=== PATIENT | male | born 1950 ===

== ENCOUNTER 2018-10-06 07:45 | Inpatient (IN) | payer MEDICARE, OTHER ==
[2018-10-06 07:46] VITALS: BMI 27.2
[2018-10-06] MEDS ORDERED: Sodium Chloride 0.9% 500 ML IV STA (08:12)
[2018-10-06] MEDS ORDERED: Albuterol 0.083% Inhal Sol (2.5 mg/3 mL) UD INH STA (08:12)
[2018-10-06] MEDS ORDERED: Albuterol-Ipratrop 3 mg / 0.5 (3 ml) UD IH STA (08:12)
[2018-10-06 08:29] LABS: BASO # 0.1 K/uL (0.0-0.2); EOS # 0.6 K/uL (0.0-0.7); EOS % 8.9 % (0.0-4.0); HEMOGLOBIN 13.1 g/dL (12.0-18.0); LYMPH # 0.6 K/uL (1.0-4.3); LYMPH % 8.7 % (20.0-40.0); MEAN CORPUSCULAR HEMOGLOBIN 28.1 pg (27.0-31.0); MEAN CORPUSCULAR HGB CONC 33.7 g/dL (33.0-37.0); MEAN PLATELET VOLUME 7.7 fL (7.2-11.7); MONO # 0.6 K/uL (0.0-0.8); MONO % 9.7 % (0.0-10.0); NEUT # 4.7 K/uL (1.8-7.0); NEUT % 71.7 % (50.0-75.0); PLATELET COUNT 203 K/uL (130-400); RBC 4.66 Mil/uL (4.40-5.90); RED CELL DISTRIBUTION WIDTH 14.4 % (11.5-14.5); WHITE BLOOD COUNT 6.5 K/uL (4.8-10.8)
[2018-10-06] MEDS ORDERED: Sodium Chloride 0.9% 500 ML IV ONE ×4 (08:31→11:22)
[2018-10-06] MEDS ORDERED: Albuterol-Ipratrop 3 mg / 0.5 (3 ml) UD ONE (08:31)
[2018-10-06] MEDS ORDERED: Albuterol 0.083% Inhal Sol (2.5 mg/3 mL) UD ONE (08:31)
[2018-10-06 08:32] LABS: MEAN CELL VOLUME 83.4 fL (80.0-94.0)
[2018-10-06 08:33] LABS: VENOUS BLOOD GAS BASE EXCESS -0.8 mmol/L (0.0-2.0); VENOUS BLOOD GAS PCO2 37 mmHg (40-60); VENOUS BLOOD GAS PO2 49 mm/Hg (30-55); VENOUS BLOOD PH 7.41 (7.32-7.43)
[2018-10-06 08:39] LABS: ALB/GLOB RATIO 1.7 (1.0-2.1); ALBUMIN 4.6 g/dL (3.5-5.0); ALT/SGPT 29 U/L (21-72); AST/SGOT 26 U/L (17-59); BLOOD UREA NITROGEN 8 mg/dL (9-20); CALCIUM 8.9 mg/dl (8.6-10.4); GFR NON-AFRICAN AMERICAN > 60
[2018-10-06 08:58] LABS: BANDS 4 % (0-2); EOSINOPHIL 10 % (0-4); LYMPHOCYTE 8 % (20-40); MONOCYTE 6 % (0-10); NEUTROPHIL 72 % (50-75); PLATELET ESTIMATE NORMAL (NORMAL); TOTAL CELLS COUNTED 100
--- NOTE | 2018-10-06 10:37 | RAD ---
HISTORY: fever, cough, wheezing COMPARISON: Chest x-ray performed 06/16/16 TECHNIQUE: Chest, one view. FINDINGS: LUNGS: No focal consolidation. Please note that chest x-ray has limited sensitivity for the detection of pulmonary masses. PLEURA: No significant pleural effusion identified. No definite pneumothorax . CARDIOVASCULAR: Heart size appears within normal limits. OSSEOUS STRUCTURES: Degenerative changes. Calcific tendinitis, right shoulder. VISUALIZED UPPER ABDOMEN: Mild elevation of the right hemidiaphragm. OTHER FINDINGS: None. IMPRESSION: No focal consolidation.
[2018-10-06 10:50] LABS: VENOUS BLOOD GAS BASE EXCESS -3.3 mmol/L (0.0-2.0); VENOUS BLOOD GAS PCO2 36 mmHg (40-60); VENOUS BLOOD GAS PO2 69 mm/Hg (30-55); VENOUS BLOOD PH 7.38 (7.32-7.43)
[2018-10-06] MEDS ORDERED: Sodium Chloride 0.9% 1,000 ML IV ONE (11:31)
[2018-10-06] MEDS ORDERED: NS IV STA (11:52)
[2018-10-06] MEDS ORDERED: AZITHROMYCIN 500 MG/250 ML IV STA (11:52)
--- NOTE | 2018-10-06 11:53 | C.PDOC ---
History Of Present Illness 67 y/o male, w/PMhx of asthma, presents to the ER complaining of fever, cough, nasal congestion, and wheezing which has been present since yesterday. Patient denies having CP, SOB, nausea, vomiting, and abdominal pain. HPI: Influenza Chief Complaint: Cough, Cold, Congestion History Per: Patient Exam Limitations: no limitations Onset/Duration Of Symptoms: Days Past Medical History Reviewed: Historical Data, Nursing Documentation, Vital Signs Vital Signs: Last Vital Signs Temp 101 F H 10/06/18 11:11 Pulse 105 H 10/06/18 11:11 Resp 20 10/06/18 11:11 BP 98/55 L 10/06/18 11:11 Pulse Ox 96 10/06/18 11:11 - Medical History PMH: Asthma, Diabetes, Gastritis, Hiatal Hernia, HTN, Hypercholesterolemia, Kidney Stones, Pancreatitis, Chronic Kidney Disease Other Surgeries: Hx of surgeries - [facility] Procedures ESOPHAGOGASTRODUODENOSCOPY [EGD] W/CLOSED BIOPSY (01/05/15) Family History: States: No Known Family Hx - Social History Hx Tobacco Use: No Hx Alcohol Use: No Hx Substance Use: No - Immunization History Hx Tetanus Toxoid Vaccination: No Hx Influenza Vaccination: No Hx Pneumococcal Vaccination: No Review Of Systems Except As Marked, All Systems Reviewed And Found Negative. Constitutional: Positive for: Fever. Negative for: Chills ENT: Positive for: Nose Congestion Cardiovascular: Negative for: Chest Pain Respiratory: Positive for: Cough, Wheezing. Negative for: Shortness of Breath Gastrointestinal: Negative for: Nausea, Vomiting Physical Exam - Physical Exam Appears: Non-toxic, No Acute Distress Skin: Normal Color, Warm, Dry Head: Atraumatic, Normacephalic Eye(s): bilateral: Normal Inspection Ear(s): Bilateral: Normal Nose: Normal Oral Mucosa: Moist Throat: Normal, No Erythema, No Exudate Neck: Supple Chest: Symmetrical Cardiovascular: Rhythm Regular Respiratory: No Rales, No Rhonchi, Wheezing, Other (speaking full sentences) Gastrointestinal/Abdominal: Soft, No Tenderness, No Guarding, No Rebound Neurological/Psych: Oriented x3, Normal Speech Additional Physical Exam Comments: febrile - Laboratory Results Result Diagrams: 10/06/18 08:22 10/06/18 08:22 Lab Results: pO2 69 mm/Hg (30-55) H 10/06/18 10:35 VBG pH 7.38 (7.32-7.43) 10/06/18 10:35 VBG pCO2 36 mmHg (40-60) L 10/06/18 10:35 VBG HCO3 22.2 mmol/L 10/06/18 10:35 VBG Total CO2 22.4 mmol/L (22-28) 10/06/18 10:35 VBG O2 Sat (Calc) 96.1 % (40-65) H 10/06/18 10:35 VBG Base Excess -3.3 mmol/L (0.0-2.0) L 10/06/18 10:35 VBG Potassium 3.6 mmol/L (3.6-5.2) 10/06/18 10:35 Sodium 135.0 mmol/l (132-148) 10/06/18 10:35 Chloride 100.0 mmol/L (98-107) 10/06/18 10:35 Glucose 194 mg/dl (75-110) H 10/06/18 10:35 Lactate 3.1 mmol/L (0.7-2.1) H 10/06/18 10:35 Troponin I < 0.0120 ng/mL (0.00-0.120) 10/06/18 08:22 Total Bilirubin 0.6 mg/dL (0.2-1.3) 10/06/18 08:22 AST 26 U/L (17-59) 10/06/18 08:22 ALT 29 U/L (21-72) 10/06/18 08:22 Alkaline Phosphatase 56 U/L (38-126) 10/06/18 08:22 Total Protein 7.2 g/dL (6.3-8.3) 10/06/18 08:22 Albumin 4.6 g/dL (3.5-5.0) 10/06/18 08:22 Globulin 2.6 gm/dL (2.2-3.9) 10/06/18 08:22 Albumin/Globulin Ratio 1.7 (1.0-2.1) 10/06/18 08:22 - ECG O2 Sat by Pulse Oximetry: 96 (RA) Pulse Ox Interpretation: Normal - Radiology X-Ray: Interpreted by Me, Viewed By Me X-Ray Interpretation: No Acute Disease - Progress ED Course And Treament: Labs, UA, Flu Swab, and CXR ordered. Patient was initially treated with Solu- Medrol and Nebulizer. Flu Swab was positive for Flu A. Patient was treated with Tamiflu and IV Fluids. Case discussed with Dr.Vinodkumar Hernandez. Patient will be admitted under the service of Dr. Kp Hernandez. Disposition - Disposition Disposition: HOSPITALIZED Disposition Time: 11:52 Condition: FAIR - Clinical Impression Clinical Impression: Influenza A, COPD with exacerbation, Elevated lactic acid level - PA / LARGE SHEETFED PRESS OPERATOR / Resident Statement MD/DO has reviewed & agrees with the documentation as recorded. - Scribe Statement The provider has reviewed the documentation as recorded by the Torri Powell Provider Attestation All medical record entries made by the Jemmaibe were at my direction and personally dictated by me. I have reviewed the chart and agree that the record accurately reflects my personal performance of the history, physical exam, medical decision making, and the department course for this patient. I have also personally directed, reviewed, and agree with the discharge instructions and disposition. Decision To Admit - Pt Status Changed To: Hospital Disposition Of: Observation - . Bed Request Type: Telemetry Admitting Physician: Juan Ramon Joshi Patient Diagnosis: Influenza A, COPD with exacerbation, Elevated lactic acid level
[2018-10-06] MEDS ORDERED: Albuterol HFA 90 mcg/actuation (8 g) IH PRN (13:11)
[2018-10-06 13:40] LABS: URINE BILIRUBIN NEGATIVE (NEGATIVE); URINE BLOOD 1+ (NEGATIVE); URINE CLARITY Clear (Clear); URINE COLOR Colorless (YELLOW); URINE GLUCOSE (UA) 3+ mg/dL (Normal); URINE LEUKOCYTE ESTERASE NEG Leu/uL (Negative); URINE PROTEIN NEGATIVE (NEGATIVE); URINE UROBILINOGEN NORMAL mg/dL (0.2-1.0)
[2018-10-06 14:27] VITALS: RESP 20
--- NOTE | 2018-10-06 14:55 | HP ---
HISTORY OF PRESENT ILLNESS: This is a 67-year-old [place] male who came to the emergency room with a history of cough, fever, nasal congestion and wheezing. The patient has history of COPD. The patient denies nausea, vomiting or abdominal pain. The patient has Rapid test done for flu which is positive for influenza A virus. REVIEW OF SYSTEMS: CARDIOVASCULAR SYSTEM: Negative for chest pain. RESPIRATORY SYSTEM: Positive for shortness of breath. GASTROINTESTINAL SYSTEM: Negative for nausea, vomiting or abdominal pain. CENTRAL NERVOUS SYSTEM: No focal, neurological complaints offered. No edema of the legs. Fever present. PAST MEDICAL HISTORY: History of asthma, diabetes, gastritis, , hypertension, hypercholesterolemia, renal stones, and pancreatitis. MEDICATIONS: The patient's medications have been reviewed by me. ALLERGIES; NO KNOWN ALLERGIES. FAMILY HISTORY: No known inherited disease. SOCIAL HISTORY: Nonsmoker, nonalcoholic, no IVDA. PHYSICAL EXAMINATION GENERAL: This is a 67-year-old [place] male. Alert, oriented and comfortable. VITAL SIGNS: Temperature 101, respirations 20 and blood pressure 98/55 mmHg, pulse oximetry is 105 at room air. HEENT: Normal. NECK: JVP is flat. Carotids, no bruit. LUNGS: No rales, no wheezing. HEART: S1 and S2 normal. No gallop. No murmur. ABDOMEN: Soft and nontender. No organomegaly. PSYCHOLOGICAL OPERATIONS SPECIALIST: No focal neurological deficits. No edema of the legs. LABORATORY DATA: On admission, Rapid test for influenza is positive for influenza A virus. IMPRESSION: 1. Influenza. 2. Chronic obstructive pulmonary disease. PLAN: The patient will be admitted to the floor. We will give IV antibiotics and consult with Dr. Robertson. Kp Hernandez MD
[2018-10-06] MEDS: (Novolog) Insulin Aspart, Recombinant 100 u/ml 10 ml vial SC SCH ×2 (16:33→21:19)
[2018-10-07] MEDS: (Novolog) Insulin Aspart, Recombinant 100 u/ml 10 ml vial SC SCH ×3 (08:20→17:01)
[2018-10-07] MEDS ORDERED: Enoxaparin 40 mg Syringe SC SCH (10:00)
[2018-10-07] MEDS ORDERED: guaiFENesin DM 200 mg-20 mg/10 ml UD PO PRN (10:08)
[2018-10-07 11:25] LABS: BLOOD UREA NITROGEN 14 mg/dL (9-20); GFR NON-AFRICAN AMERICAN > 60
--- NOTE | 2018-10-07 11:26 | CARD ---
APPROVED REPORT Date of service: 10/06/2018 EKG Measurement Heart [id number] CO [id number] <Conclusion> Sinus tachycardia Possible Left atrial enlargement ST & T wave abnormality, consider inferolateral ischemia Abnormal ECG
--- NOTE | 2018-10-07 12:25 | CP.PCM.PN ---
Subjective - Date & Time of Evaluation Date of Evaluation: 10/07/18 Time of Evaluation: 12:24 - Subjective Subjective: feels better. afebrile. vs wnl. Objective - Vital Signs/Intake and Output Vital Signs (last 24 hours): Temp Pulse Resp BP Pulse Ox 98.2 F 88 20 108/67 98 10/07/18 08:00 10/07/18 08:00 10/07/18 08:00 10/07/18 08:00 10/07/18 08:00 - Medications Medications: Current Medications Albuterol (Ventolin Hfa 90 Mcg/Actuation (8 G)) 1 puff IH RQID PRN PRN Reason: Cough Albuterol/Ipratropium (Duoneb 3 Mg/0.5 Mg (3 Ml) Ud) 3 ml INH RQ6 [facility] Enoxaparin Sodium (Lovenox) 40 mg SC DAILY [facility] Last Admin: 10/07/18 10:01 Dose: 40 mg Guaifenesin/Dextromethorphan (Robitussin Dm) 10 ml PO Q4H PRN PRN Reason: Cough and congestion Last Admin: 10/07/18 10:52 Dose: 10 ml Ceftriaxone Sodium 1 gm/ (Sodium Chloride) 100 mls @ 100 mls/hr IVPB DAILY [facility]; Protocol Last Admin: 10/07/18 10:01 Dose: 100 mls/hr Insulin Aspart (Novolog) 0 unit SC ACHS [facility]; Protocol Last Admin: 10/07/18 08:20 Dose: 2 unit Metformin HCl (Glucophage) 500 mg PO TIDCC [facility] Last Admin: 10/07/18 08:20 Dose: 500 mg Oseltamivir Phosphate (Tamiflu Cap) 75 mg PO BID [facility]; Protocol Stop: 10/11/18 13:16 Last Admin: 10/07/18 10:01 Dose: 75 mg - Labs Labs: 10/06/18 08:22 10/07/18 11:04 - Constitutional Appears: No Acute Distress - Eye Exam Eye Exam: PERRL - ENT Exam ENT Exam: Mucous Membranes Moist - Respiratory Exam Respiratory Exam: Clear to Ausculation Bilateral, NORMAL BREATHING PATTERN - Cardiovascular Exam Cardiovascular Exam: REGULAR RHYTHM, +S1, +S2 - GI/Abdominal Exam GI & Abdominal Exam: Soft, Normal Bowel Sounds - Extremities Exam Extremities Exam: Full ROM, Normal Capillary Refill, Normal Inspection. absent: Joint Swelling, Pedal Edema - Back Exam Back Exam: NORMAL INSPECTION - Neurological Exam Neurological Exam: Alert, Awake, CN II-XII Intact, Normal Gait, Oriented x3 Assessment and Plan - Assessment and Plan (Free Text) Assessment: influenza. copd. Plan: ok for d/c home. z [email or web address].
--- NOTE | 2018-10-07 12:42 | CP.PCM.CON ---
History of Present Illness - History of Present Illness History of Present Illness: 67 y/o male, w/PMhx of asthma, presents to the ER complaining of fever, cough, nasal congestion, and wheezing which has been present since yesterday. Patient denies having CP, SOB, nausea, vomiting, and abdominal pain. found to be febrile and Influenza A + admitted for possible bronchopneumonia cultures sent - Medical History PMH: Asthma, Diabetes, Gastritis, Hiatal Hernia, HTN, Hypercholesterolemia, Kidney Stones, Pancreatitis, Chronic Kidney Disease Other Surgeries: Hx of surgeries - [facility] Procedures ESOPHAGOGASTRODUODENOSCOPY [EGD] W/CLOSED BIOPSY (01/05/15) Review of Systems - Review of Systems All systems: reviewed and no additional remarkable complaints except - Constitutional Constitutional: As Per HPI - EENT Eyes: absent: As Per HPI, Blind Spots, Blurred Vision, Change in Vision, Decreased Night Vision, Diplopia, Discharge, Dry Eye, Exophthalmos, Floaters, Irritation, Itchy Eyes, Loss of Peripheral Vision, Pain, Photophobia, Requires Corrective Lenses, Sees Flashes, Spots in Vision, Tunnel Vision, Other Visual Disturbances, Loss of Vision, Other Ears: absent: As Per HPI, Decreased Hearing, Ear Discharge, Ear Pain, Tinnitus, Abnormal Hearing, Disequilibrium, Dizziness, Other Nose/Mouth/Throat: absent: As Per HPI, Epistaxis, Nasal Congestion, Nasal Discharge, Nasal Obstruction, Nasal Trauma, Nose Pain, Post Nasal Drip, Sinus Pain, Sinus Pressure, Bleeding Gums, Change in Voice, Dental Pain, Dry Mouth, Dy sphagia, Halitosis, Hoarsness, Lip Swelling, Mouth Lesions, Mouth Pain, Odynophagia, Sore Throat, Throat Swelling, Tongue Swelling, Facial Pain, Neck Pain, Neck Mass, Other - Cardiovascular Cardiovascular: absent: As Per HPI, Acrocyanosis, Chest Pain, Chest Pain at Rest, Chest Pain with Activity, Claudication, Diaphoresis, Dyspnea, Dyspnea on Exertion, Edema, Irregular Heart Rhythm, Pain Radiating to Arm/Neck/Jaw, Leg Edema, Leg Ulcers, Lightheadedness, Orthopnea, Palpitations, Paroxysmal Nocturnal Dyspnea, Pedal Edema, Radiating Pain, Rapid Heart Rate, Slow Heart Rate, Syncope, Other - Respiratory Respiratory: As Per HPI - Gastrointestinal Gastrointestinal: absent: As Per HPI, Abdominal Pain, Belching, Bloating, Change in Bowel Habits, Change in Stool Character, Coffee Ground Emesis, Constipation, Cramping, Diarrhea, Dyspepsia, Dysphagia, Early Satiety, Excessive Flatus, Fecal Incontinence, Heartburn, Hematemesis, Hematochezia, Loose Stools, Melena, Nausea, Odynophagia, Temesmus, Vomiting, Other - Genitourinary Genitourinary: absent: As Per HPI, Change in Urinary Stream, Difficulty Urinating, Dysuria, Flank Pain, Hematuria, Pyuria, Nocturia, Urinary Incontinence, Urinary Frequency, Urinary Hesitance, Urinary Urgency, Voiding Freq/Small Amts, Freq UTI, Hx Renal/Bladder Calculi, Hx /Renal Surgery, Bladder Distension, Other - Musculoskeletal Musculoskeletal: absent: As Per HPI, Abnormal Gait, Arthralgias, Atrophy, Back Pain, Deformity, Joint Swelling, Limited Range of Motion, Loss of Height, Muscle Cramps, Muscle Weakness, Myalgias, Neck Pain, Numbness, Radiating Pain into Limb, Stiffness, Tingling, Other - Integumentary Integumentary: absent: As Per HPI, Acne, Alopecia, Bleeding Lesions, Change in Hair, Change in Nails, Change in Pigmentation, Changing Lesions, Dry Skin, Erythema, Furuncle, Hirsutism, Lesions, New Lesions, Non-Healing Lesions, Photosensitivity, Pruritus, Rash, Skin Pain, Skin Ulcer, Sores, Striae, Swelling, Unusual Bruising, Wounds, Jaundice, Other - Neurological Neurological: absent: As Per HPI, Abnormal Gait, Abnormal Hearing, Abnormal Movements, Abnormal Speech, Behavioral Changes, Burning Sensations, Confusion, Convulsions, Disequilibrium, Dizziness, Numbness, Focal Weakness, Frequent Falls, Headaches, Lack of Coordination, Loss of Vision, Memory Loss, Paresthesias, Radicular Pain, Restless Legs, Sensory Deficit, Syncope, Tingling, Tremor, Vertigo, Weakness, Other Visual Disturbances, Other - Psychiatric Psychiatric: absent: As Per HPI, Abnormal Sleep Pattern, Anhedonia, Anxiety, Auditory Hallucinations, Behavioral Changes, Change in Appetite, Change in Libido, Confusion, Depression, Difficulty Concentrating, Hallucinations, Homicidal Ideation, Hopelessness, Irritability, Memory Loss, Mood Swings, Panic Attacks, Paranoia, Suicidal Ideation, Visual Hallucinations, Tactile Hallucinations, Other - Endocrine Endocrine: absent: As Per HPI, Change in Body Appearance, Change in Libido, Cold Intolorance, Deepening of Voice, Excessive Sweating, Fatigue, Flushing, Heat Intolorance, Increase in Ring/Shoe/Hat Size, Palpitations, Polydipsia, Polyphagia, Polyuria, Other Past Patient History - Past Medical History & Family History Past Medical History?: Yes - Past Social History Smoking Status: Never Smoked - CARDIAC Hx Hypercholesterolemia: Yes Hx Hypertension: Yes - PULMONARY Hx Asthma: Yes - NEUROLOGICAL Hx Neurological Disorder: No - HEENT Hx HEENT Problems: No - RENAL Hx Chronic Kidney Disease: Yes Hx Kidney Stones: Yes - ENDOCRINE/METABOLIC Hx Endocrine Disorders: Yes Hx Diabetes Mellitus Type 2: Yes - HEMATOLOGICAL/ONCOLOGICAL Hx Blood Disorders: No - INTEGUMENTARY Hx Dermatological Problems: No - MUSCULOSKELETAL/RHEUMATOLOGICAL Hx Musculoskeletal Disorders: No Hx Falls: No - GASTROINTESTINAL Hx Gastritis: Yes Hx Pancreatitis: Yes - GENITOURINARY/GYNECOLOGICAL Hx Genitourinary Disorders: No - PSYCHIATRIC Hx Substance Use: No - SURGICAL HISTORY Hx Surgeries: Yes Hx Herniorrhaphy: Yes Other/Comment: hx:kidney stone ablation 2006 - ANESTHESIA Hx Anesthesia: Yes Hx Anesthesia Reactions: No Meds Home Medications: Home Medication List Medication Instructions Recorded Confirmed Type Oseltamivir Cap [Tamiflu Cap] 75 mg PO BID #8 capsule 10/07/18 Rx Allergies/Adverse Reactions: Allergies Allergy/AdvReac Type Severity Reaction Status Date / Time No Known Allergies Allergy Verified 06/16/16 10:00 - Medications Medications: Current Medications Albuterol (Ventolin Hfa 90 Mcg/Actuation (8 G)) 1 puff IH RQID PRN PRN Reason: Cough Albuterol/Ipratropium (Duoneb 3 Mg/0.5 Mg (3 Ml) Ud) 3 ml INH RQ6 [facility] Enoxaparin Sodium (Lovenox) 40 mg SC DAILY [facility] Last Admin: 10/07/18 10:01 Dose: 40 mg Guaifenesin/Dextromethorphan (Robitussin Dm) 10 ml PO Q4H PRN PRN Reason: Cough and congestion Last Admin: 10/07/18 10:52 Dose: 10 ml Ceftriaxone Sodium 1 gm/ (Sodium Chloride) 100 mls @ 100 mls/hr IVPB DAILY [facility]; Protocol Last Admin: 10/07/18 10:01 Dose: 100 mls/hr Insulin Aspart (Novolog) 0 unit SC ACHS [facility]; Protocol Last Admin: 10/07/18 12:20 Dose: 1 unit Metformin HCl (Glucophage) 500 mg PO TIDCC [facility] Last Admin: 10/07/18 12:40 Dose: 500 mg Oseltamivir Phosphate (Tamiflu Cap) 75 mg PO BID [facility]; Protocol Stop: 10/11/18 13:16 Last Admin: 10/07/18 10:01 Dose: 75 mg Physical Exam - Constitutional Appears: Non-toxic, Chronically Ill - Head Exam Head Exam: ATRAUMATIC, NORMOCEPHALIC - Eye Exam Eye Exam: Normal appearance, PERRL. absent: Scleral icterus - ENT Exam ENT Exam: Mucous Membranes Dry, Normal External Ear Exam - Neck Exam Neck exam: Negative for: Lymphadenopathy - Respiratory Exam Respiratory Exam: Decreased Breath Sounds, Clear to Auscultation Bilateral - Cardiovascular Exam Cardiovascular Exam: REGULAR RHYTHM, +S1, +S2 - GI/Abdominal Exam GI & Abdominal Exam: Diminished Bowel Sounds, Soft. absent: Tenderness - Rectal Exam Rectal Exam: Deferred - Exam Exam: NORMAL INSPECTION - Extremities Exam Extremities exam: Positive for: pedal pulses present. Negative for: calf tenderness, pedal edema, tenderness - Back Exam Back exam: absent: CVA tenderness (L), CVA tenderness (R), paraspinal tenderness - Neurological Exam Neurological exam: Alert, CN II-XII Intact, Oriented x3, Reflexes Normal - Psychiatric Exam Psychiatric exam: Normal Mood - Skin Skin Exam: Dry Results - Vital Signs Recent Vital Signs: Last Vital Signs Temp 98.2 F 10/07/18 08:00 Pulse 88 10/07/18 08:00 Resp 20 10/07/18 08:00 BP 108/67 10/07/18 08:00 Pulse Ox 98 10/07/18 08:00 - Labs Result Diagrams: 10/06/18 08:22 10/07/18 11:04 Labs: Laboratory Results - last 24 hr 10/06/18 10/06/18 10/06/18 13:31 16:05 21:08 Sodium Potassium Chloride Carbon Dioxide Anion Gap BUN Creatinine Est GFR ( Amer) Est GFR (Non-Af Amer) POC Glucose (mg/dL) 334 H 247 H Random Glucose Calcium Magnesium Urine Color Colorless Urine Clarity Clear Urine pH 6.0 Ur Specific Datto 1.002 L Urine Protein Negative Urine Glucose (UA) 3+ H Urine Ketones Negative Urine Blood 1+ H Urine Nitrate Negative Urine Bilirubin Negative Urine Urobilinogen Normal Ur Leukocyte Esterase Neg Urine WBC (Auto) < 1 Urine RBC (Auto) < 1 10/07/18 10/07/18 10/07/18 06:30 11:04 11:42 Sodium 136 Potassium 3.6 Chloride 101 Carbon Dioxide 23 Anion Gap 15 BUN 14 Creatinine 0.9 Est GFR ( Amer) > 60 Est GFR (Non-Af Amer) > 60 POC Glucose (mg/dL) 216 H 193 H Random Glucose 222 H Calcium 9.0 Magnesium 1.9 Urine Color Urine Clarity Urine pH Ur Specific Datto Urine Protein Urine Glucose (UA) Urine Ketones Urine Blood Urine Nitrate Urine Bilirubin Urine Urobilinogen Ur Leukocyte Esterase Urine WBC (Auto) Urine RBC (Auto) Assessment & Plan (1) COPD with exacerbation Status: Acute (2) Diabetes mellitus, type 2 Status: Acute (3) Influenza A Status: Acute - Assessment and Plan (Free Text) Assessment: cont supportive care CXR negative hold off antibiotics for now observ cont hydration '
[2018-10-07] MEDS ORDERED: Albuterol-Ipratrop 3 mg / 0.5 (3 ml) UD INH SCH (14:00)
[2018-10-07 16:44] VITALS: BP 107/66; PULSE 104; TEMP 98.5; O2SAT 95
== END 2018-10-07 18:35 | disposition home or self-care (01) | DRG 194 ==
LOC: C.ER 07:45 → C.9E 11:53 → C.5S 12:24 → C.9E 12:32 → C.5S 12:35
PROVIDERS: ADMIT Internal Medicine; ATTEND Internal Medicine
DX: J10.1 Influenza due to other identified influenza virus with other respiratory manifestations (principal); J44.1 Chronic obstructive pulmonary disease with (acute) exacerbation; R79.89 Other specified abnormal findings of blood chemistry; N18.9 Chronic kidney disease, unspecified; Z87.442 Personal history of urinary calculi; E11.22 Type 2 diabetes mellitus with diabetic chronic kidney disease; I12.9 Hypertensive chronic kidney disease with stage 1 through stage 4 chronic kidney disease, or unspecified chronic kidney disease; E78.00 Pure hypercholesterolemia, unspecified

== ENCOUNTER 2019-01-04 19:48 | Observation (INO) | payer MEDICARE ==
[2019-01-04 19:49] VITALS: BMI 27.2
[2019-01-04] MEDS ORDERED: Albuterol-Ipratrop 3 mg / 0.5 (3 ml) UD INH STA (20:37)
[2019-01-04] MEDS ORDERED: Albuterol-Ipratrop 3 mg / 0.5 (3 ml) UD ONE (20:50)
[2019-01-04] MEDS ORDERED: MethylPREDNISolone 40 mg Vial IM STA (20:52)
[2019-01-04] MEDS ORDERED: Albuterol 0.083% Inhal Sol (2.5 mg/3 mL) UD INH STA (21:07)
[2019-01-04] MEDS ORDERED: Albuterol 0.083% Inhal Sol (2.5 mg/3 mL) UD ONE (21:16)
--- NOTE | 2019-01-04 22:04 | C.PDOC ---
History Of Present Illness 68 y/o male w/PMhx of COPD, presents to the ER complaining of fever, cough, and chest congestion which has been present for the past 10 days. Patient states that he has been taking Albuterol without relief. Patient reports that he has not been seeing his PMD recently. He admits to having shortness of breath at times. Denies having headache,dizziness, weakness, chest pain, nausea, and vomiting. Time Seen by Provider: 01/04/19 20:01 Chief Complaint (Nursing): Flu-like Symptoms History Per: Patient History/Exam Limitations: no limitations Onset/Duration Of Symptoms: Days Current Symptoms Are (Timing): Still Present Sick Contacts (Context): Family Member(s) () Severity: Moderate Past Medical History Reviewed: Historical Data, Nursing Documentation, Vital Signs Vital Signs: Last Vital Signs Temp 98.8 F 01/04/19 19:55 Pulse 102 H 01/04/19 19:55 Resp 16 01/04/19 19:55 BP 142/91 H 01/04/19 19:55 Pulse Ox 98 01/04/19 19:55 - Medical History PMH: Asthma, Diabetes, Gastritis, Hiatal Hernia, HTN, Hypercholesterolemia, Kidney Stones, Pancreatitis, Chronic Kidney Disease Other Surgeries: Hx of surgeries - [facility] Procedures ESOPHAGOGASTRODUODENOSCOPY [EGD] W/CLOSED BIOPSY (01/05/15) Family History: States: No Known Family Hx - Social History Hx Tobacco Use: No Hx Alcohol Use: No Hx Substance Use: No - Immunization History Hx Tetanus Toxoid Vaccination: No Hx Influenza Vaccination: No Hx Pneumococcal Vaccination: No Review Of Systems Constitutional: Positive for: Fever. Negative for: Chills Cardiovascular: Negative for: Chest Pain Respiratory: Positive for: Cough, Shortness of Breath, Wheezing Gastrointestinal: Negative for: Nausea, Vomiting Musculoskeletal: Negative for: Neck Pain Skin: Negative for: Rash Neurological: Negative for: Headache, Dizziness Physical Exam - Physical Exam Appears: Non-toxic, No Acute Distress Skin: Normal Color, Warm, Dry Head: Atraumatic, Normacephalic Eye(s): bilateral: Normal Inspection Ear(s): Bilateral: Normal Nose: Normal Oral Mucosa: Moist Tongue: Normal Appearing Lips: Normal Appearing Throat: Normal, No Erythema, No Exudate Neck: Normal ROM, Supple Chest: Symmetrical Cardiovascular: Rhythm Regular Respiratory: Wheezing Gastrointestinal/Abdominal: Soft, No Tenderness Neurological/Psych: Oriented x3, Normal Speech, Normal Motor, Normal Sensation Gait: Steady ED Course And Treatment - Laboratory Results Result Diagrams: 01/04/19 22:42 O2 Sat by Pulse Oximetry: 98 (RA) Pulse Ox Interpretation: Normal - Other Rad cxr X-Ray: Viewed By Me, Read By Radiologist Interpretation: Exam Date : 01/04/2019 20:40:45 ( Approved ). Study Comment : Sex / Age : M / 68Y. Creator : Stephanie Garcia MD. Dictator : Stephanie Garcia MD. Group Managing Director : Pallet Rectifier : Stephanie Garcia MD. Approver2 : Report Date : 01/04/2019 22:09:36. My Comment : . HISTORY: cough. COMPARISON: Chest x-ray performed 10/06/18. TECHNIQUE: Chest PA and lateral, 2 views. FINDINGS: Patient is slightly rotated. LUNGS: Mild patchy opacities at the left lung base may reflect atelectasis or pneumonia. Please note that chest x-ray has limited sensitivity for the detection of pulmonary masses. PLEURA: No significant pleural effusion identified. No definite pneumothorax . CARDIOVASCULAR: Heart size appears top normal. Aortic ectasia. Atherosclerotic calcifications of the aortic knob. OSSEOUS STRUCTURES: Osseous demineralization. Degenerative changes. VISUALIZED UPPER ABDOMEN: Elevation of the right hemidiaphragm. OTHER FINDINGS: None. IMPRESSION: Mild patchy opacities at the left lung base may reflect atelectasis or pneumonia. Correlate clinically. Medical Decision Making Medical Decision Making: Plan: --CXR ordered --duonebx 2 and Solu-Medrol IM --wheezing improved but still present --Albuterol x 1 --wheezing improved but CXR revealed possible pneumonia in the left lung vs atelectasis --labs ordered --D/W Dr. Aleman who accepts admission at 10:44pm Disposition Discussed With DrVirginia: Lazaro Aleman Jr. Doctor Will See Patient In The: Hospital Counseled Patient/Family Regarding: Studies Performed, Diagnosis - Disposition Disposition: HOSPITALIZED Disposition Time: 22:44 Condition: STABLE Forms: [facility] (Portuguese) - Clinical Impression Clinical Impression: SOB (shortness of breath), Pneumonia - PA / PET AMBASSADOR / Resident Statement MD/DO has reviewed & agrees with the documentation as recorded. - Scribe Statement The provider has reviewed the documentation as recorded by the Scribe Jefry Powell Provider Attestation All medical record entries made by the Scribe were at my direction and personally dictated by me. I have reviewed the chart and agree that the record accurately reflects my personal performance of the history, physical exam, medical decision making, and the department course for this patient. I have also personally directed, reviewed, and agree with the discharge instructions and disposition. Decision To Admit - Pt Status Changed To: Hospital Disposition Of: Observation - . Bed Request Type: Telemetry Admitting Physician: Lazaro Aleman Jr. Patient Diagnosis: SOB (shortness of breath), Pneumonia
--- NOTE | 2019-01-04 22:07 | C.PDOC ---
Time Seen by Provider: 01/04/19 20:01 Chief Complaint (Nursing): Flu-like Symptoms Past Medical History Vital Signs: Last Vital Signs Temp 98.8 F 01/04/19 19:55 Pulse 102 H 01/04/19 19:55 Resp 16 01/04/19 19:55 BP 142/91 H 01/04/19 19:55 Pulse Ox 98 01/04/19 19:55 - Medical History PMH: Asthma, Diabetes, Gastritis, Hiatal Hernia, HTN, Hypercholesterolemia, Kidney Stones, Pancreatitis, Chronic Kidney Disease - [facility] Procedures ESOPHAGOGASTRODUODENOSCOPY [EGD] W/CLOSED BIOPSY (01/05/15) Family History: States: Unknown Family Hx - Social History Hx Tobacco Use: No Hx Alcohol Use: No Hx Substance Use: No - Immunization History Hx Tetanus Toxoid Vaccination: No Hx Influenza Vaccination: No Hx Pneumococcal Vaccination: No ED Course And Treatment O2 Sat by Pulse Oximetry: 98 Disposition Counseled Patient/Family Regarding: Studies Performed, Diagnosis, Need For Followup, Rx Given - Disposition Referrals: Kp Hernandez MD [Staff Provider] - Disposition: HOME/ ROUTINE Disposition Time: 22:04 Condition: STABLE
--- NOTE | 2019-01-04 22:13 | RAD ---
HISTORY: cough COMPARISON: Chest x-ray performed 10/06/18 TECHNIQUE: Chest PA and lateral, 2 views FINDINGS: Patient is slightly rotated. LUNGS: Mild patchy opacities at the left lung base may reflect atelectasis or pneumonia. Please note that chest x-ray has limited sensitivity for the detection of pulmonary masses. PLEURA: No significant pleural effusion identified. No definite pneumothorax . CARDIOVASCULAR: Heart size appears top normal. Aortic ectasia. Atherosclerotic calcifications of the aortic knob. OSSEOUS STRUCTURES: Osseous demineralization. Degenerative changes. VISUALIZED UPPER ABDOMEN: Elevation of the right hemidiaphragm. OTHER FINDINGS: None. IMPRESSION: Mild patchy opacities at the left lung base may reflect atelectasis or pneumonia. Correlate clinically.
[2019-01-04 22:46] LABS: BASO # 0.1 K/uL (0.0-0.2); BASO % 0.6 % (0.0-2.0); EOS # 0.7 K/uL (0.0-0.7); EOS % 7.7 % (0.0-4.0); HEMOGLOBIN 13.2 g/dL (12.0-18.0); LYMPH # 1.5 K/uL (1.0-4.3); LYMPH % 15.7 % (20.0-40.0); MEAN CELL VOLUME 82.2 fL (80.0-94.0); MEAN CORPUSCULAR HEMOGLOBIN 27.8 pg (27.0-31.0); MEAN CORPUSCULAR HGB CONC 33.8 g/dL (33.0-37.0); MEAN PLATELET VOLUME 7.5 fL (7.2-11.7); MONO # 0.5 K/uL (0.0-0.8); MONO % 5.5 % (0.0-10.0); NEUT # 6.9 K/uL (1.8-7.0); NEUT % 70.5 % (50.0-75.0); RBC 4.75 Mil/uL (4.40-5.90); RED CELL DISTRIBUTION WIDTH 13.6 % (11.5-14.5)
[2019-01-04 22:47] LABS: WHITE BLOOD COUNT 9.8 K/uL (4.8-10.8)
[2019-01-04 23:11] LABS: ALB/GLOB RATIO 1.4 (1.0-2.1); ALBUMIN 4.5 g/dL (3.5-5.0); ALT/SGPT 17 U/L (21-72); AST/SGOT 20 U/L (17-59); BLOOD UREA NITROGEN 9 mg/dL (9-20); CALCIUM 9.8 mg/dl (8.6-10.4); GFR NON-AFRICAN AMERICAN > 60
[2019-01-05] MEDS ORDERED: Glucagon Recombinant 1 mg Inj IM PRN (00:59)
[2019-01-05] MEDS ORDERED: Dextrose 50% SYRINGE Inj (50 ml) IV PRN (00:59)
[2019-01-05] MEDS ORDERED: Albuterol-Ipratrop 3 mg / 0.5 (3 ml) UD INH PRN (01:00)
[2019-01-05] MEDS: Sodium Chloride 0.9% 1,000 ML IV SCH ×2 (01:22→12:22)
--- NOTE | 2019-01-05 02:18 | CP.PCM.HP ---
History of Present Illness - History of Present Illness History of Present Illness: 68 year old male with a past medical history of copd, pancreatitis, diabetes, and nephrolithiasis present to the hospital after reporting coughing for the past ten to fifteen days. Patient states the cough is productive in nature with whie phlegm. Patient states he took a "pill" with no improvement in symptoms. Patient also reports sore throat for the past couple of days in conjunction with the cough. Patient also reports feeling somewhat short of breath after to cough. Patient denies any recent travel outside of the country. Patient also denies any fevers, chills, headaches, dizziness, syncopal episodes, chest pain, or any other complaints. PMD: Denies Medical history: copd, pancreatitis, diabetes, nephrolithiasis Allergies: Denies Surgical history: Stone ablation (2005) Medications: Metformin 1000MG PO BID, Rabeprazole 20mg PO DAILY Family history: non- contributory Social history:Denies smoking history. Reports drinking socially. Denies illicit drug use. Live in [place] with his . Hasn't worked for 4 years. Code status: Full code Present on Admission - Present on Admission Any Indicators Present on Admission: No Review of Systems - Constitutional Constitutional: absent: Chills, Daytime Sleepiness, Headache, Night Sweats, Weakness - EENT Eyes: absent: Blurred Vision, Discharge, Loss of Peripheral Vision, Sees Flashes, Loss of Vision Ears: absent: Dizziness Nose/Mouth/Throat: absent: Nasal Congestion, Nose Pain, Mouth Pain, Facial Pain, Neck Pain - Cardiovascular Cardiovascular: absent: Chest Pain, Diaphoresis, Irregular Heart Rhythm, Leg Edema, Palpitations, Syncope - Gastrointestinal Gastrointestinal: Nausea, Vomiting. absent: Dysphagia, Heartburn, Melena - Reproductive: Male Additional comments: No perineal loss of sensation or numbness - Musculoskeletal Musculoskeletal: Back Pain. absent: Neck Pain, Stiffness, Tingling - Neurological Neurological: absent: Focal Weakness, Tremor, Vertigo, Weakness - Endocrine Endocrine: absent: Polydipsia, Polyphagia, Polyuria Past Patient History - Past Medical History & Family History Past Medical History?: Yes - Past Social History Smoking Status: Never Smoked - CARDIAC Hx Hypercholesterolemia: Yes Hx Hypertension: Yes - PULMONARY Hx Asthma: Yes - NEUROLOGICAL Hx Neurological Disorder: No - HEENT Hx HEENT Problems: No - RENAL Hx Chronic Kidney Disease: Yes Hx Kidney Stones: Yes - ENDOCRINE/METABOLIC Hx Endocrine Disorders: Yes Hx Diabetes Mellitus Type 2: Yes - HEMATOLOGICAL/ONCOLOGICAL Hx Blood Disorders: No - INTEGUMENTARY Hx Dermatological Problems: No - MUSCULOSKELETAL/RHEUMATOLOGICAL Hx Musculoskeletal Disorders: No Hx Falls: No - GASTROINTESTINAL Hx Gastritis: Yes Hx Pancreatitis: Yes - GENITOURINARY/GYNECOLOGICAL Hx Genitourinary Disorders: No - PSYCHIATRIC Hx Substance Use: No - SURGICAL HISTORY Hx Surgeries: Yes Hx Herniorrhaphy: Yes Other/Comment: hx:kidney stone ablation 2006 - ANESTHESIA Hx Anesthesia: Yes Hx Anesthesia Reactions: No Meds Allergies/Adverse Reactions: Allergies Allergy/AdvReac Type Severity Reaction Status Date / Time No Known Allergies Allergy Verified 06/16/16 10:00 Physical Exam - Head Exam Head Exam: ATRAUMATIC, NORMAL INSPECTION, NORMOCEPHALIC - Eye Exam Eye Exam: EOMI, Normal appearance, PERRL Pupil Exam: NORMAL ACCOMODATION, PERRL. absent: Irregular, Unequal - ENT Exam ENT Exam: Mucous Membranes Moist, Normal Oropharynx - Respiratory Exam Respiratory Exam: Clear to Auscultation Bilateral, NORMAL BREATHING PATTERN. absent: Prolonged Expiratory Phase, Respiratory Distress - Cardiovascular Exam Cardiovascular Exam: REGULAR RHYTHM, +S1, +S2 - GI/Abdominal Exam GI & Abdominal Exam: Normal Bowel Sounds, Soft. absent: Hypoactive Bowel Sounds, Organomegaly - Extremities Exam Extremities exam: Positive for: normal inspection. Negative for: full ROM, joint swelling, pedal edema - Back Exam Back exam: absent: CVA tenderness (L), CVA tenderness (R), muscle spasm, paraspinal tenderness, tenderness - Neurological Exam Neurological exam: Alert, CN II-XII Intact, Oriented x3 - Psychiatric Exam Psychiatric exam: Normal Affect, Normal Mood - Skin Skin Exam: Dry, Intact, Normal Color Results - Vital Signs Recent Vital Signs: Last Vital Signs Temp 98.8 F 01/04/19 23:47 Pulse 61 01/05/19 02:06 Resp 18 01/05/19 02:06 BP 141/81 01/05/19 02:06 Pulse Ox 99 01/05/19 02:06 - Labs Result Diagrams: 01/04/19 22:42 01/04/19 22:42 Labs: Laboratory Results - last 24 hr 01/04/19 01/04/19 22:42 22:42 WBC 9.8 D RBC 4.75 Hgb 13.2 Hct 39.1 MCV 82.2 MCH 27.8 MCHC 33.8 RDW 13.6 Plt Count 255 MPV 7.5 Neut % (Auto) 70.5 Lymph % (Auto) 15.7 L Carbon % (Auto) 5.5 Eos % (Auto) 7.7 H Baso % (Auto) 0.6 Neut # (Auto) 6.9 Lymph # (Auto) 1.5 Carbon # (Auto) 0.5 Eos # (Auto) 0.7 Baso # (Auto) 0.1 Sodium 134 Potassium 4.5 Chloride 99 Carbon Dioxide 22 Anion Gap 18 BUN 9 Creatinine 0.9 Est GFR ( Amer) > 60 Est GFR (Non-Af Amer) > 60 Random Glucose 260 H Calcium 9.8 Total Bilirubin 0.5 AST 20 ALT 17 L D Alkaline Phosphatase 76 Total Protein 7.7 Albumin 4.5 Globulin 3.2 Albumin/Globulin Ratio 1.4 Assessment & Plan - Assessment and Plan (Free Text) Assessment: 68 year old male with a past medical history of copd, pancreatitis, diabetes, and nephrolithiasis present to the hospital after reporting coughing for the past ten to fifteen days. Plan: 1.Cough/sob -CXR: mild pathchy opacities at LLB, may reflect atelectasis or pneumonia -WBC 9.8 on admission, Afebrile. -Mycoplasma, S.pneumonie, Legionella ordered. Will f/u with results. Medications: Azithromycin 500mg IVPB DAILY Tessalon Pereles 100mg PO TID Tylenol 650mg PO Q6 PRN Solumedrol 40mg IVP Daily Duoneb 3ml INH RQ6 PRN 2. hx DM -home Medication Metformin held. -ISS ACHS -Hypoglycemic protocol PPX -Protonix 20mg PO DAILY -Heparin 5000 units q12 sc daily Plan discussed with Attending Dr. Aleman. Ron Cerrato, PGY-2
[2019-01-05 04:16] LABS: BASO # 0.1 K/uL (0.0-0.2); BASO % 1.5 % (0.0-2.0); EOS % 0.2 % (0.0-4.0); HEMOGLOBIN 13.3 g/dL (12.0-18.0); LYMPH # 0.6 K/uL (1.0-4.3); LYMPH % 6.2 % (20.0-40.0); MEAN CELL VOLUME 83.5 fL (80.0-94.0); MEAN CORPUSCULAR HEMOGLOBIN 27.3 pg (27.0-31.0); MEAN CORPUSCULAR HGB CONC 32.7 g/dL (33.0-37.0); MEAN PLATELET VOLUME 7.6 fL (7.2-11.7); MONO # 0.1 K/uL (0.0-0.8); MONO % 1.4 % (0.0-10.0); NEUT # 8.1 K/uL (1.8-7.0); NEUT % 90.7 % (50.0-75.0); PLATELET COUNT 254 K/uL (130-400); RBC 4.86 Mil/uL (4.40-5.90)
[2019-01-05 05:02] LABS: ALB/GLOB RATIO 1.5 (1.0-2.1); ALBUMIN 4.7 g/dL (3.5-5.0); ALT/SGPT 17 U/L (21-72); AST/SGOT 21 U/L (17-59); BLOOD UREA NITROGEN 12 mg/dL (9-20); CALCIUM 10.1 mg/dl (8.6-10.4); GFR NON-AFRICAN AMERICAN > 60
[2019-01-05] MEDS ORDERED: (Novolin R) Insulin Human Regular 100 units/ml vial ONE ×2 (05:20→07:59)
[2019-01-05] MEDS ORDERED: (Novolin R) Insulin Human Regular 100 units/ml vial SC ONE (05:22)
[2019-01-05 06:06] LABS: BANDS 1 % (0-2); TOTAL CELLS COUNTED 100
[2019-01-05 06:07] LABS: LYMPHOCYTE 6 % (20-40); MONOCYTE 2 % (0-10); MYELOCYTE 1 % (0-0); NEUTROPHIL 90 % (50-75); PLATELET ESTIMATE NORMAL (NORMAL)
[2019-01-05] MEDS ORDERED: (Novolin R) Insulin Human Regular 100 units/ml vial SC SCH (07:30)
[2019-01-05] MEDS: (Novolin R) Insulin Human Regular 100 units/ml vial SC SCH ×2 (07:56→12:17)
[2019-01-05] MEDS ORDERED: Pantoprazole 20 mg EC Tab PO SCH (10:00)
[2019-01-05] MEDS ORDERED: MethylPREDNISolone 40 mg Vial IVP SCH (10:00)
[2019-01-05] MEDS ORDERED: Azithromycin 500 MG in Sodium Chloride 0.9% 250 ML IVPB SCH (10:00)
[2019-01-05] MEDS ORDERED: Azithromycin 500mg/250ML NS 500 MG/250 ML BAG IVPB ONE (10:20)
--- NOTE | 2019-01-05 11:05 | CP.PCM.DIS ---
Provider - Provider Date of Admission: 01/04/19 22:44 Attending physician: Lazaro Aleman Jr, MD Time Spent in preparation of Discharge (in minutes): 39 Diagnosis - Discharge Diagnosis (1) Asthma due to environmental allergies Status: Acute (2) Pneumonia Status: Acute Hospital Course - Lab Results Lab Results: Most Recent Lab Values WBC 9.0 K/uL (4.8-10.8) 01/05/19 04:11 RBC 4.86 Mil/uL (4.40-5.90) 01/05/19 04:11 Hgb 13.3 g/dL (12.0-18.0) 01/05/19 04:11 Hct 40.6 % (35.0-51.0) 01/05/19 04:11 MCV 83.5 fL (80.0-94.0) 01/05/19 04:11 MCH 27.3 pg (27.0-31.0) 01/05/19 04:11 MCHC 32.7 g/dL (33.0-37.0) L 01/05/19 04:11 RDW 14.0 % (11.5-14.5) 01/05/19 04:11 Plt Count 254 K/uL (130-400) 01/05/19 04:11 MPV 7.6 fL (7.2-11.7) 01/05/19 04:11 Neut % (Auto) 90.7 % (50.0-75.0) H 01/05/19 04:11 Lymph % (Auto) 6.2 % (20.0-40.0) L 01/05/19 04:11 Quay % (Auto) 1.4 % (0.0-10.0) 01/05/19 04:11 Eos % (Auto) 0.2 % (0.0-4.0) 01/05/19 04:11 Baso % (Auto) 1.5 % (0.0-2.0) 01/05/19 04:11 Neut # (Auto) 8.1 K/uL (1.8-7.0) H 01/05/19 04:11 Lymph # (Auto) 0.6 K/uL (1.0-4.3) L 01/05/19 04:11 Quay # (Auto) 0.1 K/uL (0.0-0.8) 01/05/19 04:11 Eos # (Auto) 0.0 K/uL (0.0-0.7) 01/05/19 04:11 Baso # (Auto) 0.1 K/uL (0.0-0.2) 01/05/19 04:11 Neutrophils % (Manual) 90 % (50-75) H 01/05/19 04:11 Band Neutrophils % 1 % (0-2) 01/05/19 04:11 Lymphocytes % (Manual) 6 % (20-40) L 01/05/19 04:11 Monocytes % (Manual) 2 % (0-10) 01/05/19 04:11 Myelocytes % 1 % (0-0) H 01/05/19 04:11 Platelet Estimate Normal (NORMAL) 01/05/19 04:11 Sodium 136 mmol/L (132-148) 01/05/19 04:11 Potassium 5.0 mmol/L (3.6-5.2) 01/05/19 04:11 Chloride 99 mmol/L (98-107) 01/05/19 04:11 Carbon Dioxide 19 mmol/L (22-30) L 01/05/19 04:11 Anion Gap 22 (10-20) H 01/05/19 04:11 BUN 12 mg/dL (9-20) 01/05/19 04:11 Creatinine 0.9 mg/dL (0.8-1.5) 01/05/19 04:11 Est GFR ( Amer) > 60 01/05/19 04:11 Est GFR (Non-Af Amer) > 60 01/05/19 04:11 POC Glucose (mg/dL) 349 mg/dL (65-110) H 01/05/19 07:34 Random Glucose 420 mg/dL (75-110) H* D 01/05/19 04:11 Calcium 10.1 mg/dl (8.6-10.4) 01/05/19 04:11 Total Bilirubin 0.6 mg/dL (0.2-1.3) 01/05/19 04:11 AST 21 U/L (17-59) 01/05/19 04:11 ALT 17 U/L (21-72) L 01/05/19 04:11 Alkaline Phosphatase 76 U/L (38-126) 01/05/19 04:11 Total Protein 7.8 g/dL (6.3-8.3) 01/05/19 04:11 Albumin 4.7 g/dL (3.5-5.0) 01/05/19 04:11 Globulin 3.1 gm/dL (2.2-3.9) 01/05/19 04:11 Albumin/Globulin Ratio 1.5 (1.0-2.1) 01/05/19 04:11 Influenza Typ A,B (EIA) Negative for flu a/b (NEGATIVE) 01/05/19 10:00 Ur L.pneumophila Ag Negative (NEGATIVE) 01/05/19 06:19 Mycoplasma pneumon IgM Negative (NEGATIVE) 01/05/19 04:11 - Hospital Course Hospital Course: Upon Admission 68 year old male with a past medical history of copd, pancreatitis, diabetes, and nephrolithiasis present to the hospital after reporting coughing for the past ten to fifteen days. Patient states the cough is productive in nature with whie phlegm. Patient states he took a "pill" with no improvement in symptoms. Patient also reports sore throat for the past couple of days in conjunction with the cough. Patient also reports feeling somewhat short of breath after to [facility]. Patient denies any recent travel outside of the country. Patient also denies any fevers, chills, headaches, dizziness, syncopal episodes, chest pain, or any other complaints. Hospital Course Admitted for PNA w/ possible asthma exacerbation. Treated with IV azithromycin and discharged with oral steroids and oral azithromycin with f/u instructions. Patient's sugar was slightly elevated but likely 2/2 to IV steroid tx. Discharge Plan 1. Patient is stable for discharge to home as per Dr. Aleman. 2. Patient will continue all home medications as no adjustments were made during this admission. 3. Patient will be discharged with a 5 day supply of azithromycin and medrol steroid to be taken as instructed. 4. Patient will f/u with primary medical doctor within a week of discharge from hospital. 5. If symptoms worsen or recur patient should return to the hospital. Disclaimer: Written above is a shortened synopsis of patient's current hospital admission. For full report refer to EMR Discharge Exam - Head Exam Head Exam: ATRAUMATIC, NORMAL INSPECTION, NORMOCEPHALIC - Eye Exam Eye Exam: EOMI, Normal appearance. absent: Nystagmus, Scleral icterus - ENT Exam ENT Exam: Mucous Membranes Moist - Respiratory Exam Respiratory Exam: NORMAL BREATHING PATTERN. absent: Rhonchi, Respiratory Distress - Cardiovascular Exam Cardiovascular Exam: Tachycardia, REGULAR RHYTHM, +S1, +S2 - GI/Abdominal Exam GI & Abdominal Exam: Normal Bowel Sounds, Soft. absent: Tenderness - Extremities Exam Extremities exam: normal inspection - Neurological Exam Neurological exam: Alert, Oriented x3 - Psychiatric Exam Psychiatric exam: Normal Affect, Normal Mood - Skin Skin Exam: Dry, Intact, Normal Color Discharge Plan - Discharge Medications Prescriptions: Azithromycin [Zithromax] 500 mg PO DAILY #5 tab methylPREDNISolone [Methylprednisolone] 4 mg PO DAILY #5 tab - Follow Up Plan Condition: STABLE Disposition: HOME/ ROUTINE Additional Instructions: 1. Patient is stable for discharge to home as per Dr. Aleman. 2. Patient will continue all home medications as no adjustments were made during this admission. 3. Patient will be discharged with a 5 day supply of azithromycin and medrol steroid to be taken as instructed. 4. Patient will f/u with primary medical doctor within a week of discharge from hospital. 5. If symptoms worsen or recur patient should return to the hospital.
[2019-01-05 11:14] VITALS: BP 150/85; PULSE 101; RESP 18; TEMP 97.7; O2SAT 100
== END 2019-01-05 12:53 | disposition home or self-care (01) ==
LOC: C.ER 19:48 → C.9E 22:44 → C.6T 01-05 10:34
PROVIDERS: ADMIT Internal Medicine; ATTEND Internal Medicine
DX: J44.0 Chronic obstructive pulmonary disease with (acute) lower respiratory infection (principal); J18.9 Pneumonia, unspecified organism; E11.22 Type 2 diabetes mellitus with diabetic chronic kidney disease; I12.9 Hypertensive chronic kidney disease with stage 1 through stage 4 chronic kidney disease, or unspecified chronic kidney disease; N18.9 Chronic kidney disease, unspecified; E78.00 Pure hypercholesterolemia, unspecified
CPT/HCPCS: 71046; 80053; 82948; 85025; 86317; 86738; 87449; 87804; 96365; 96372; 96374; G0378; J0456; J1644; J2920; J7030; J7050